=== PATIENT | female | born 1935 | race Caucasian/White ===

== ENCOUNTER 2022-02-02 11:41 | Emergency (ER) | payer MEDICARE ==
[2022-02-02 13:02] LABS: Bilirubin Neg (Negative); Blood, Urine Negative (Negative); Clarity Slightly Cloudy (Clear); Glucose, Urine (Dipstick) Normal (Negative); Ketone, Urine Negative (Negative); Leukocyte 100 (Negative); Nitrite Negative (Negative); Protein, Urine (Dipstick) 30 mg/dl (Neg-Trace)
[2022-02-02 13:15] LABS: Bacteria/HPF Rare-Few HPF (None Seen)
== END 2022-02-02 13:35 | disposition home or self-care (01) ==
LOC: CSHERS 11:41
DX: N39.0 Urinary tract infection, site not specified (principal); R60.0 Localized edema; E03.9 Hypothyroidism, unspecified; F17.210 Nicotine dependence, cigarettes, uncomplicated; E78.00 Pure hypercholesterolemia, unspecified
CPT/HCPCS: 81003; 81015; 87086; 99284

== ENCOUNTER 2022-02-28 19:55 | Emergency (ER) | payer MEDICARE ==
[2022-02-28 20:56] LABS: Bilirubin 1+ (Negative); Blood, Urine 150 (Negative); Clarity Cloudy (Clear); Glucose, Urine (Dipstick) Normal (Negative); Ketone, Urine 5 mg/dL (Negative); Leukocyte 500 (Negative); Nitrite Negative (Negative); Protein, Urine (Dipstick) 100 mg/dl (Neg-Trace)
[2022-02-28 21:07] LABS: Bacteria/HPF 4+ HPF (None Seen); Renal Epithelial None Seen HPF (None Seen); Transitional Epithelial 0-3 HPF (None Seen); WBC/HPF Greater than 50 HPF (0-3)
[2022-02-28] MEDS ORDERED: cefTRIAXone\\ROCEPHIN 1 GM VIAL ONE (21:30)
== END 2022-02-28 23:23 | disposition home or self-care (01) ==
LOC: CSHERS 19:55
DX: N39.0 Urinary tract infection, site not specified (principal); E03.9 Hypothyroidism, unspecified; E78.00 Pure hypercholesterolemia, unspecified; Z87.891 Personal history of nicotine dependence
CPT/HCPCS: 51701; 81003; 81015; 87077; 87086; 87186; 96365; J0696

== ENCOUNTER 2022-03-27 20:58 | Emergency (ER) | payer MEDICARE ==
[2022-03-27] MEDS ORDERED: Mineral Oil ENEMA PR SCH (23:00)
== END 2022-03-28 03:39 | disposition home or self-care (01) ==
LOC: CSHERS 20:58
DX: K59.00 Constipation, unspecified (principal); E03.9 Hypothyroidism, unspecified; E78.00 Pure hypercholesterolemia, unspecified; I10 Essential (primary) hypertension; Z87.891 Personal history of nicotine dependence; Z79.82 Long term (current) use of aspirin; Z79.899 Other long term (current) drug therapy
CPT/HCPCS: 99283

== ENCOUNTER 2022-04-10 03:54 | Inpatient (IN) | payer MEDICARE ==
[2022-04-10 04:47] LABS: #Basophils 0.1 10x3/uL (0.0-0.2); #Monocytes 0.5 10x3/uL (0.0-1.1); #Neutrophils 5.5 10x3/uL (1.5-8.4); %Basophils 0.5 % (0.0-2.0); %Eosinophils 0.4 % (0.0-6.0); %Lymphocytes 32.9 % (18.0-47.0); %Monocytes 5.8 % (0.0-10.0); %Neutrophils 59.7 % (40.0-75.0); Hemoglobin 13.6 g/dL (12.0-15.5); Mean Corpuscular HGB CONC 32.5 g/dL (32.0-36.0); Mean Corpuscular Hemoglobin 29.1 pg (27.0-33.0); Mean Corpuscular Volume 89.7 fl (81.6-98.3); Mean Platelet Volume 10.9 fl (7.4-10.4); Platelet Count 175 10x3/uL (150-450); RBC Distribution Width 17.8 % (11.5-14.5); Red Blood Cell (RBC) Count 4.67 10x6/uL (3.90-5.03); White Blood Cell (WBC) Count 9.2 10x3/uL (3.5-10.5)
[2022-04-10] MEDS ORDERED: Ondansetron PF 4 MG/2 ML Vial ONE ×2 (04:54→06:03)
[2022-04-10 05:03] LABS: ALT (SGPT) 49 U/L (8-55); AST (SGOT) 58 U/L (5-34); Albumin 3.3 g/dL (3.4-4.8); Alkaline Phosphatase 66 U/L (40-110); Anion Gap 20 mmol/L (10-20); BUN (Urea Nitrogen) 19 mg/dL (9.8-20.1); Bilirubin, Total 0.7 mg/dL (0.2-1.2); Calc. Creatinine Clearance 0 mL/min (70-130); Carbon Dioxide 28 mmol/L (23-31); Chloride 105 mmol/L (98-107); Estimated GFR 85; Globulin 3.9 g/dL (2.4-3.5); Glucose 97 mg/dL (83-110); Lipase 33 U/L (8-78); Potassium 3.6 mmol/L (3.5-5.1); Protein, Total 7.2 g/dL (5.8-8.1); Sodium 149 mmol/L (136-145)
[2022-04-10] MEDS ORDERED: Nystatin 500,000 UNITS/5 ML UDCUP PO SCH (05:15)
[2022-04-10 05:25] LABS: SARS-CoV-2 NAA Rapid Test Not Detected (NotDetected)
[2022-04-10 05:25] LABS: CKMB 2.2 ng/mL (0-6.6)
[2022-04-10] MEDS ORDERED: Ondansetron ODT 4 MG TAB PO PRN (07:34)
[2022-04-10] MEDS ORDERED: Acetaminophen 325 MG TAB PO PRN (07:34)
[2022-04-10] MEDS ORDERED: Acetaminophen 650 MG Suppository PR PRN (07:34)
[2022-04-10] MEDS ORDERED: Dextrose 5 %-0.45 % NaCl 1,000 ML IV SCH (07:45)
[2022-04-10 08:28] LABS: Troponin I 0.033 ng/mL (< 0.028)
[2022-04-10] MEDS ORDERED: Iopamidol 300 61% 100 ML VIAL FS ONE (10:17)
[2022-04-10 11:01] LABS: Troponin I 0.033 ng/mL (< 0.028)
[2022-04-10 11:47] LABS: Anion Gap 13 mmol/L (10-20); BUN (Urea Nitrogen) 16 mg/dL (9.8-20.1); Calc. Creatinine Clearance 0 mL/min (70-130); Calcium 8.7 mg/dL (7.8-10.44); Carbon Dioxide 25 mmol/L (23-31); Chloride 111 mmol/L (98-107); Estimated GFR 87; Glucose 98 mg/dL (83-110); Potassium 2.8 mmol/L (3.5-5.1); Sodium 146 mmol/L (136-145)
[2022-04-10] MEDS ORDERED: Nystatin 500,000 UNITS/5 ML UDCUP ONE (12:09)
[2022-04-10] MEDS: Nystatin 500,000 UNITS/5 ML UDCUP SSW SCH ×3 (13:55→21:10)
[2022-04-10 14:23] VITALS: BMI 25.7
[2022-04-10] MEDS ORDERED: 1/2 NS w/KCL 20 mEq 1,000 ML IV SCH (14:30)
[2022-04-10] MEDS ORDERED: FLU VACC QS2022-23(65YR UP)/PF 240 MCG/0.7 ML SYRINGE IM ONE (14:30)
[2022-04-10] MEDS: Potassium Chloride 40 MEQ in Sodium Chloride 0.45% 1,000 ML IV SCH (15:00)
[2022-04-10 18:40] LABS: Bilirubin Neg (Negative); Blood, Urine 250 (Negative); Clarity Slightly Cloudy (Clear); Glucose, Urine (Dipstick) Normal (Negative); Ketone, Urine Negative (Negative); Leukocyte 500 (Negative); Nitrite Positive (Negative); Protein, Urine (Dipstick) 30 mg/dl (Neg-Trace); Specific Gravity, Urine 1.005 (1.005-1.030); Urobilinogen Normal mg/dL (Less than 2)
[2022-04-10 19:02] LABS: Bacteria/HPF 3+ HPF (None Seen); CAUTI Indications for Culture Alt mental st,lethar; RBC/HPF 21-50 HPF (0-3)
[2022-04-10 19:05] LABS: Urine Culture Reflex Yes Yes
[2022-04-10] MEDS: Senokot S 8.6-50 MG TAB PO SCH (21:09)
[2022-04-11 04:29] LABS: #Eosinphils 0.1 10x3/uL (0.0-0.5); #Monocytes 0.4 10x3/uL (0.0-1.1); #Neutrophils 3.4 10x3/uL (1.5-8.4); %Basophils 0.5 % (0.0-2.0); %Eosinophils 1.2 % (0.0-6.0); %Lymphocytes 34.9 % (18.0-47.0); %Monocytes 6.7 % (0.0-10.0); %Neutrophils 55.9 % (40.0-75.0); Hemoglobin 12.6 g/dL (12.0-15.5); Mean Corpuscular HGB CONC 32.3 g/dL (32.0-36.0); Mean Corpuscular Hemoglobin 29.9 pg (27.0-33.0); Mean Corpuscular Volume 92.6 fl (81.6-98.3); Mean Platelet Volume 10.7 fl (7.4-10.4); Platelet Count 184 10x3/uL (150-450); RBC Distribution Width 17.5 % (11.5-14.5); Red Blood Cell (RBC) Count 4.21 10x6/uL (3.90-5.03); White Blood Cell (WBC) Count 6.1 10x3/uL (3.5-10.5)
[2022-04-11 04:37] LABS: Anion Gap 11 mmol/L (10-20); BUN (Urea Nitrogen) 12 mg/dL (9.8-20.1); Calc. Creatinine Clearance 74 mL/min (70-130); Calcium 8.4 mg/dL (7.8-10.44); Carbon Dioxide 26 mmol/L (23-31); Chloride 112 mmol/L (98-107); Estimated GFR 87; Glucose 78 mg/dL (83-110); Potassium 3.2 mmol/L (3.5-5.1); Sodium 146 mmol/L (136-145)
[2022-04-11] MEDS: Potassium Chloride 40 MEQ in Sodium Chloride 0.45% 1,000 ML IV SCH (05:07)
[2022-04-11] MEDS: Nystatin 500,000 UNITS/5 ML UDCUP SSW SCH ×4 (09:55→21:31)
[2022-04-11] MEDS: Senokot S 8.6-50 MG TAB PO SCH ×2 (09:55→21:31)
[2022-04-11] MEDS ORDERED: Dextrose 5% w/ 20 mEq KCl 1,000 ML IV SCH ×2 (11:15→17:48)
[2022-04-11] MEDS ORDERED: cefTRIAXone\\ROCEPHIN 1 GM VIAL ONE (12:00)
[2022-04-11] MEDS ORDERED: Sodium Chloride 0.9% 100 ML ONE (12:00)
[2022-04-11] MEDS ORDERED: Dextrose 5% w/ 20 mEq KCl 1,000 ML ONE (12:00)
[2022-04-11] MEDS: cefTRIAXone\\ROCEPHIN 1 GM in Sodium Chloride 0.9% 100 ML IVPB SCH (12:05)
[2022-04-11] MEDS ORDERED: Polyethylene Glycol 3350 17 GM Packet PO SCH (15:00)
[2022-04-11 15:44] LABS: Anion Gap 12 mmol/L (10-20); BUN (Urea Nitrogen) 11 mg/dL (9.8-20.1); Calc. Creatinine Clearance 76 mL/min (70-130); Calcium 8.3 mg/dL (7.8-10.44); Carbon Dioxide 25 mmol/L (23-31); Chloride 112 mmol/L (98-107); Estimated GFR 88; Glucose 94 mg/dL (83-110); Potassium 3.7 mmol/L (3.5-5.1); Sodium 145 mmol/L (136-145)
[2022-04-11] MEDS: Ondansetron PF 4 MG/2 ML Vial IVP PRN (21:26)
[2022-04-12 04:25] LABS: #Eosinphils 0.2 10x3/uL (0.0-0.5); #Monocytes 0.4 10x3/uL (0.0-1.1); #Neutrophils 2.9 10x3/uL (1.5-8.4); %Basophils 0.5 % (0.0-2.0); %Eosinophils 2.7 % (0.0-6.0); %Lymphocytes 40.6 % (18.0-47.0); %Monocytes 7.3 % (0.0-10.0); %Neutrophils 47.4 % (40.0-75.0); Hemoglobin 12.3 g/dL (12.0-15.5); Mean Corpuscular HGB CONC 32.5 g/dL (32.0-36.0); Mean Corpuscular Hemoglobin 29.9 pg (27.0-33.0); Mean Corpuscular Volume 92.2 fl (81.6-98.3); Mean Platelet Volume 9.7 fl (7.4-10.4); Platelet Count 143 10x3/uL (150-450); RBC Distribution Width 17.1 % (11.5-14.5); Red Blood Cell (RBC) Count 4.11 10x6/uL (3.90-5.03)
[2022-04-12 04:39] LABS: Anion Gap 11 mmol/L (10-20); BUN (Urea Nitrogen) 9 mg/dL (9.8-20.1); Calc. Creatinine Clearance 84 mL/min (70-130); Calcium 8.1 mg/dL (7.8-10.44); Carbon Dioxide 25 mmol/L (23-31); Chloride 108 mmol/L (98-107); Estimated GFR 90; Glucose 98 mg/dL (83-110); Potassium 3.6 mmol/L (3.5-5.1); Sodium 140 mmol/L (136-145)
[2022-04-12] MEDS: Nystatin 500,000 UNITS/5 ML UDCUP SSW SCH ×5 (07:41→22:03)
[2022-04-12] MEDS: Polyethylene Glycol 3350 17 GM Packet PO SCH (10:02)
[2022-04-12] MEDS: cefTRIAXone\\ROCEPHIN 1 GM in Sodium Chloride 0.9% 100 ML IVPB SCH (12:15)
[2022-04-12] MEDS: Ondansetron PF 4 MG/2 ML Vial IVP PRN (12:15)
[2022-04-12] MEDS: Senokot S 8.6-50 MG TAB PO SCH ×2 (12:16→22:03)
[2022-04-12] MEDS ORDERED: Milk Of Magnesia 30 ML UDCUP PO SCH (13:30)
[2022-04-12] MEDS ORDERED: Piperacillin/Tazobactam 3.375 GM in Sodium Chloride 0.9% 100 ML IVPB SCH (14:30)
[2022-04-12] MEDS: Piperacillin/Tazobactam 3.375 GM in Sodium Chloride 0.9% 100 ML IVPB SCH (17:24)
[2022-04-13] MEDS: Piperacillin/Tazobactam 3.375 GM in Sodium Chloride 0.9% 100 ML IVPB SCH ×3 (03:06→18:30)
[2022-04-13 03:40] LABS: #Eosinphils 0.2 10x3/uL (0.0-0.5); #Monocytes 0.5 10x3/uL (0.0-1.1); #Neutrophils 2.5 10x3/uL (1.5-8.4); %Basophils 0.7 % (0.0-2.0); %Eosinophils 2.6 % (0.0-6.0); %Lymphocytes 44.7 % (18.0-47.0); %Monocytes 7.8 % (0.0-10.0); %Neutrophils 42.6 % (40.0-75.0); Hemoglobin 12.7 g/dL (12.0-15.5); Mean Corpuscular Hemoglobin 29.4 pg (27.0-33.0); Mean Corpuscular Volume 89.1 fl (81.6-98.3); Mean Platelet Volume 10.1 fl (7.4-10.4); Platelet Count 177 10x3/uL (150-450); RBC Distribution Width 16.6 % (11.5-14.5); Red Blood Cell (RBC) Count 4.32 10x6/uL (3.90-5.03); White Blood Cell (WBC) Count 5.8 10x3/uL (3.5-10.5)
[2022-04-13 03:48] LABS: Anion Gap 10 mmol/L (10-20); BUN (Urea Nitrogen) 6 mg/dL (9.8-20.1); Calc. Creatinine Clearance 81 mL/min (70-130); Carbon Dioxide 26 mmol/L (23-31); Chloride 104 mmol/L (98-107); Estimated GFR 89; Glucose 86 mg/dL (83-110); Potassium 3.6 mmol/L (3.5-5.1); Sodium 136 mmol/L (136-145)
[2022-04-13] MEDS: Senokot S 8.6-50 MG TAB PO SCH ×2 (10:38→21:28)
[2022-04-13] MEDS: Nystatin 500,000 UNITS/5 ML UDCUP SSW SCH ×4 (10:41→21:28)
[2022-04-13] MEDS: Polyethylene Glycol 3350 17 GM Packet PO SCH (10:48)
[2022-04-13] MEDS ORDERED: Amoxicillin/Potassium Clav 875 MG TAB PO SCH (21:00)
[2022-04-13] MEDS: Amoxicillin/Potassium Clav 400 mg/5 ml Oral Suspension PO SCH (21:28)
[2022-04-14 04:28] LABS: #Eosinphils 0.1 10x3/uL (0.0-0.5); #Monocytes 0.5 10x3/uL (0.0-1.1); #Neutrophils 2.3 10x3/uL (1.5-8.4); %Basophils 0.7 % (0.0-2.0); %Lymphocytes 46.8 % (18.0-47.0); %Monocytes 8.1 % (0.0-10.0); %Neutrophils 41.5 % (40.0-75.0); Hemoglobin 13.5 g/dL (12.0-15.5); Mean Corpuscular HGB CONC 33.3 g/dL (32.0-36.0); Mean Corpuscular Hemoglobin 29.5 pg (27.0-33.0); Mean Corpuscular Volume 88.6 fl (81.6-98.3); Platelet Count 176 10x3/uL (150-450); Red Blood Cell (RBC) Count 4.57 10x6/uL (3.90-5.03); White Blood Cell (WBC) Count 5.6 10x3/uL (3.5-10.5)
[2022-04-14 04:38] LABS: Anion Gap 12 mmol/L (10-20); BUN (Urea Nitrogen) 6 mg/dL (9.8-20.1); Calc. Creatinine Clearance 81 mL/min (70-130); Calcium 8.2 mg/dL (7.8-10.44); Carbon Dioxide 24 mmol/L (23-31); Chloride 103 mmol/L (98-107); Estimated GFR 89; Glucose 87 mg/dL (83-110); Potassium 3.5 mmol/L (3.5-5.1); Sodium 135 mmol/L (136-145)
[2022-04-14] MEDS ORDERED: Levothyroxine 150 MCG TAB PO SCH (08:00)
[2022-04-14] MEDS: Polyethylene Glycol 3350 17 GM Packet PO SCH (09:06)
[2022-04-14] MEDS: Aspirin 81 mg Enteric Coated Tablet PO SCH ×2 (09:06→20:54)
[2022-04-14] MEDS: Amoxicillin/Potassium Clav 400 mg/5 ml Oral Suspension PO SCH ×2 (09:06→20:54)
[2022-04-14] MEDS: Senokot S 8.6-50 MG TAB PO SCH ×2 (09:06→20:54)
[2022-04-14] MEDS: Nystatin 500,000 UNITS/5 ML UDCUP SSW SCH ×4 (09:06→20:54)
[2022-04-15 05:07] LABS: Anion Gap 11 mmol/L (10-20); BUN (Urea Nitrogen) 10 mg/dL (9.8-20.1); Calc. Creatinine Clearance 82 mL/min (70-130); Calcium 8.3 mg/dL (7.8-10.44); Carbon Dioxide 26 mmol/L (23-31); Chloride 102 mmol/L (98-107); Estimated GFR 89; Glucose 96 mg/dL (83-110); Potassium 3.6 mmol/L (3.5-5.1); Sodium 135 mmol/L (136-145)
[2022-04-15 05:29] LABS: Hemoglobin 12.6 g/dL (12.0-15.5); Mean Corpuscular HGB CONC 33.5 g/dL (32.0-36.0); Mean Corpuscular Volume 89.5 fl (81.6-98.3); Mean Platelet Volume 10.5 fl (7.4-10.4); Platelet Count 201 10x3/uL (150-450); RBC Distribution Width 17.1 % (11.5-14.5); White Blood Cell (WBC) Count 5.6 10x3/uL (3.5-10.5)
[2022-04-15] MEDS: Levothyroxine 150 MCG TAB PO SCH (05:44)
[2022-04-15 06:17] LABS: MDiff Complete? YES
[2022-04-15 06:22] LABS: Band 4 % (5-11); Eosinophils 1 % (0-10); Lymphocytes 25 % (21-51); Metamyelocyte 1 % (0-0); Monocytes 8 % (0-10); Neutrophil 38 % (42-75); Nucleated RBC 1 % (0); Reactive Lymphocytes 23 % (0-10)
[2022-04-15 06:23] LABS: Platelet Morphology Comment Appears Adequate; Reflex for Review?? YES
[2022-04-15 06:24] LABS: RBC Morphology Normal
[2022-04-15] MEDS: Amoxicillin/Potassium Clav 400 mg/5 ml Oral Suspension PO SCH ×2 (10:20→21:34)
[2022-04-15] MEDS: Polyethylene Glycol 3350 17 GM Packet PO SCH (10:22)
[2022-04-15] MEDS: Aspirin 81 mg Enteric Coated Tablet PO SCH ×2 (10:23→21:34)
[2022-04-15] MEDS: Senokot S 8.6-50 MG TAB PO SCH ×2 (10:23→21:35)
[2022-04-15] MEDS: Nystatin 500,000 UNITS/5 ML UDCUP SSW SCH ×4 (10:23→22:45)
[2022-04-15] MEDS ORDERED: Bisacodyl 10 MG SUPP PR SCH (21:00)
[2022-04-15] MEDS ORDERED: Cyanocobalamin (Vitamin B-12) 1,000 MCG TAB PO SCH (21:00)
[2022-04-15] MEDS ORDERED: Polyethylene Glycol 3350 17 GM Packet PO SCH (21:00)
[2022-04-15] MEDS ORDERED: Saccharomyces boulardii 250 MG CAP PO SCH (21:00)
[2022-04-15] MEDS ORDERED: Multivit, Therapeutic 1 TAB PO SCH (21:00)
[2022-04-16] MEDS: Levothyroxine 150 MCG TAB PO SCH (06:35)
[2022-04-16 08:27] VITALS: BP 119/60; TEMP 97.9
[2022-04-16] MEDS: Amoxicillin/Potassium Clav 400 mg/5 ml Oral Suspension PO SCH (11:08)
[2022-04-16] MEDS: Nystatin 500,000 UNITS/5 ML UDCUP SSW SCH ×2 (11:09→15:07)
[2022-04-16] MEDS: Aspirin 81 mg Enteric Coated Tablet PO SCH (11:09)
[2022-04-16] MEDS: Senokot S 8.6-50 MG TAB PO SCH (11:10)
== END 2022-04-16 16:20 | DRG 690 ==
LOC: CSHERS 03:54 → CSHTELE 11:35 → OBSVTOIN 04-12 11:30
PROVIDERS: ADMIT Internal Medicine; ATTEND Internal Medicine
PROC: 05HY33Z Insertion of Infusion Device into Upper Vein, Percutaneous Approach (ICD-10-PCS; principal; 2022-04-12)
DX: N30.00 Acute cystitis without hematuria (principal); J90 Pleural effusion, not elsewhere classified; E87.0 Hyperosmolality and hypernatremia; B37.0 Candidal stomatitis; Z16.20 Resistance to unspecified antibiotic; I24.8 Other forms of acute ischemic heart disease; E44.1 Mild protein-calorie malnutrition; E78.5 Hyperlipidemia, unspecified; E03.9 Hypothyroidism, unspecified; E86.0 Dehydration; K59.00 Constipation, unspecified; Z96.643 Presence of artificial hip joint, bilateral; F03.90 Unspecified dementia, unspecified severity, without behavioral disturbance, psychotic disturbance, mood disturbance, and anxiety; Z20.822 Contact with and (suspected) exposure to COVID-19; B96.20 Unspecified Escherichia coli [E. coli] as the cause of diseases classified elsewhere; R91.1 Solitary pulmonary nodule; N18.2 Chronic kidney disease, stage 2 (mild); I12.9 Hypertensive chronic kidney disease with stage 1 through stage 4 chronic kidney disease, or unspecified chronic kidney disease; K44.9 Diaphragmatic hernia without obstruction or gangrene; Z91.013 Allergy to seafood; Z88.8 Allergy status to other drugs, medicaments and biological substances; Z79.82 Long term (current) use of aspirin; Z79.899 Other long term (current) drug therapy; Z90.49 Acquired absence of other specified parts of digestive tract; Z98.890 Other specified postprocedural states; Z68.25 Body mass index [BMI] 25.0-25.9, adult
CPT/HCPCS: 36415; 51701; 71045; 71260; 74018; 80048; 80053; 81001; 82553; 83605; 83690; 83735; 84443; 84484; 85025; 85060; 87077; 87086; 87186; 93005; 93306; 94760; 96361; 96372; 96374; 96376; G0378; J0696; J1650; J2405; J2543; J3480; J3490; J7042; Q9967